=== PATIENT | female | born 1955 | race Caucasian/White ===

== ENCOUNTER 2017-01-14 15:25 | Emergency (ER) | payer BC, OTHER ==
[~2017-01-14] VITALS: Ht 165.1 cm; Wt 72.6 kg
[~2017-01-14 15:25] MED LIST: BENICAR 5 MG5 M1 OR; BENTYL 20 MG TA20 M1 PO; CARNITINE; CIPRO500 MG PO; FISHOIL; FLAGYL500 MG PO; INDAPAMIDE2.5 MG PO; LEVOTHYROXIN0.075 MG PO; NORCO 5-325 TA1 EACH PO; PERCOCET 5-3251 EACH PO; PHENERGAN 25 MG25 M1 PO; PRINIVIL10 MG PO; PROTONIX40 M2 PO; TRAMADOL 50 MG50 MG PO; TRAZODONE HCL100 MG PO; VALIUM5 MG PO; ZOFRAN ODT4 MG PO
[2017-01-14 15:59] LABS: URINE BILIRUBIN NEGATIVE (Negative); URINE BLOOD TRACE (Negative); URINE COLOR YELLOW; URINE GLUCOSE-RANDOM* NEGATIVE (Negative); URINE KETONES TRACE (Negative); URINE LEUKOCYTES-REFLEX NEGATIVE (Negative); URINE PROTEIN (DIPSTICK) NEGATIVE (Negative); URINE SPECIFIC GRAVITY 1.015 (1.003-1.035); URINE UROBILINOGEN 0.2 E.U./dl (0.2-1.0)
[2017-01-14 16:17] LABS: ABSOLUTE NEUTROPHILS 3.9 thou/uL (1.4-8.2); EOSINOPHILS 2.4 % (0.0-3.0); HEMATOCRIT 47.6 % (37.0-47.0); LYMPHOCYTES 28.4 % (24.0-44.0); MCH 32.6 pg (26.0-34.0); MCHC 35.7 g/dL (28.0-37.0); MCV 91.3 fL (80.0-100.0); MONOCYTES 7.5 % (1.0-8.0); PLATELET COUNT 224 thou/uL (150-400); POLYS 60.7 % (36.0-66.0); RBC 5.21 mil/uL (4.20-5.00); RDW 12.8 % (10.5-14.5); WBC 6.5 thou/uL (4.0-11.0)
[2017-01-14 16:18] LABS: MANUAL DIFF NO
[2017-01-14 16:21] LABS: CALCIUM 9.4 mg/dL (8.5-10.1); CREATININE 0.7 mg/dL (0.6-1.0)
[2017-01-14 16:27] LABS: ALBUMIN 4.7 g/dL (3.4-5.0); TOTAL BILIRUBIN 0.7 mg/dL (<0.1-1.0)
[2017-01-14] MEDS ORDERED: ULTRAM 50MG TAB50 MG PO (18:27)
[2017-01-14 18:34] VITALS: BP 147/76
== END 2017-01-14 18:36 | disposition home or self-care (01) ==
LOC: ER 15:25
PROVIDERS: Emergency Medicine
DX: R10.11 Right upper quadrant pain (principal); R10.13 Epigastric pain; I10 Essential (primary) hypertension; F10.99 Alcohol use, unspecified with unspecified alcohol-induced disorder; Z90.49 Acquired absence of other specified parts of digestive tract; Z90.710 Acquired absence of both cervix and uterus

== ENCOUNTER → 2021-05-12 | Outpatient (CLI) | payer OTHER ==
[~2021-05-12] MED LIST changes: +BENTYL 10 MG CA10 MG PO; +BYSTOLIC10 MG PO; +LEVOTHYROXINE88 MC1 PO; +MINIVELLE1 EAC1 TRANSDERM; +NURTEC ODT75 MG PO; +RIZATRIPTAN10 MG PO; +ROSUVASTATIN CA10 MG PO; +ULTRAM 50MG TAB50 MG PO
== END ==
LOC: SJCVCIMAG 07:25
PROVIDERS: ATTEND Internal Medicine Cardiovascular Disease
DX: Z01.818 Encounter for other preprocedural examination (principal); R00.1 Bradycardia, unspecified; I25.9 Chronic ischemic heart disease, unspecified; R07.9 Chest pain, unspecified; E78.5 Hyperlipidemia, unspecified; R93.1 Abnormal findings on diagnostic imaging of heart and coronary circulation; E78.00 Pure hypercholesterolemia, unspecified; I10 Essential (primary) hypertension; Z72.89 Other problems related to lifestyle; Z79.82 Long term (current) use of aspirin; Z79.899 Other long term (current) drug therapy

== ENCOUNTER → 2021-05-14 | Outpatient (CLI) | payer OTHER ==
[~2021-05-14] VITALS: Ht 165.1 cm; Wt 68.0 kg
[2021-05-14 08:35] VITALS: BP 109/73
--- NOTE | 2021-05-14 10:01 | EKG ---
[place] [address] [facility] [place] [address] ELECTROCARDIOGRAM REPORT Name: ABNER ARCE Room #: [facility]#: [id number] Admission: 05/14/21 Attend Phys: Mahin London MD Discharge: Date of : 59 Report #: [id number] [facility] Test Date: 2021-05-14 Test Time: 08:41:33 Pat Name: ABNER ARCE Department: Room: Gender: Database Development Project Manager: IMANI : 1955 Requested By: Mahin London Order Number: [id number] MD: Andrew Oh Measurements Intervals [place] Rate: 58 P: 42 ND: 169 QRS: -25 QRSD: 107 T: 5 QT: 432 QTc: 425 Interpretive Statements Sinus rhythm Left ventricular hypertrophy Inferior infarct, old Anterior infarct, old Compared to ECG 03/06/2010 18:42:13 Left ventricular hypertrophy now present Myocardial infarct finding now present Electronically Signed On 05-14-2021 10:00:57 MAINTENANCE JOB TITLES by Andrew Oh [email or web address] <ELECTRONICALLY SIGNED> By: Andrew Oh MD, [facility] 05/14/21 1000 D: 01/840 0 Andrew Oh MD, FACC /EPI
--- NOTE | 2021-05-14 10:42 | CATHLAB ---
[facility] [place] [address] INVASIVE PROCEDURE REPORT Name: ABNER ARCE [id number] Admission: 05/14/21 Attend Phys: Mahin London MD Discharge: Date of : 59 Report #: [id number] THIS REPORT FOR: cc: Lilo Calvert MD, Constance M. MD Park, Jin S. MD ~ APPROVED REPORT Study performed: 05/14/2021 09:33:19 Patient Details Patient Status: Out-Patient Room #: The patient is a 65 year-old female Event Personnel Mahin London Seam Feller, Amina Pinto RTR Monitor, Enoc Song RTR ScrubMaciel Jessica RN tool and die maker apprentice Performed Art Access - R femoral artery* Left Heart Cath w/or w/o Coronaries [id number] [facility] Hemostasis with Manual pressure 76732 Initial Mod Sed Same Phys/QHP Gr5y 542116 12172 Mod Sed Same Phys/QHP Ea [id number] Indication Positive stress test, Chest pain Risk Factors Hypercholesterolemia, Coronary Artery DiseaseHypertension Procedure Narrative The Right Groin^ was infiltrated with 1% Lidocaine subcutaneous anesthesia. A PINNACLE 4FR Sheath #[id number] sheath was inserted into the RFA^. Coronary angiography was performed using coronary diagnostic catheters. The right coronary system was accessed and visualized with a JR4 catheter. The left coronary system was accessed and visualized with a JL4 catheter. The left ventricle was accessed and visualized with a JR4 catheter. Hemostasis was obtained with manual pressure following sheath removal without any complications. The patient tolerated the procedure well and there were no complications associated with the procedure. There was no hematoma. Intraoperative Conscious Sedation [facility] [address] [place] [address] INVASIVE PROCEDURE REPORT Name: ABNER ARCE Room #: REG [facility]#: [id number] Admission: 05/14/21 Attend Phys: Mahin London MD Discharge: Date of : 59 Report #: [id number] Sedation start time: 9:53 Case end Time: 10:15 Fentanyl 50.0 mcg Versed 2 mg Fluoro Time: 1.80 minutes Dose: DAP 2710.40 cGycm2 390 mGy Contrast Type and Amount: Omnipaque 40 ml Coronary Angiography The patient's coronary anatomy is right dominant. Diagnostic Cath Left Main The left main artery is a large-caliber vessel, appears angiographically normal. LAD The LAD is a moderate-sized caliber vessel, traverses the anterior wall and wraps around the apex. There is minimal disease in the midsegment, less than 10%. Diagonal 1 This is a small to modest sized caliber vessel, patent with no flow-limiting lesions. Diagonal 2 This is a small to modest sized caliber vessel, patent with no flow-limiting lesions. Circumflex The left circumflex artery is a moderate-sized caliber vessel, supplies 2 OM vessels. OM1 This has a high takeoff from the left circumflex artery. There is mild disease in the proximal segment, 20%. OM2 This is a small to modest sized caliber vessel, patent with no flow-limiting lesions. Right Coronary The RCA is a dominant vessel with mild disease in the proximal segment, less than 20%. R PDA This is a small to modest sized caliber vessel, patent with no flow-limiting lesions. RPLV There are several RPL branches, patent vessels with no flow-limiting lesions. Left Ventriculography Left Ventriculography was not performed. Ejection Fraction was 55-60% based off patient's Nuclear Cardiac Stress Test. An LVEDP was measured and there is no gradient across the outflow tract. Hemodynamics The aortic pressure is 156/74 mmHg with a mean of 66 mmHg. The left ventricular pressure is 132/1 mmHg with a mean of mmHg. The left ventricular end diastolic pressure is 9 mmHg. Conclusion [facility] [address] [place] [address] INVASIVE PROCEDURE REPORT Name: ABNER ARCE Room #: REG [facility]#: [id number] Admission: 05/14/21 Attend Phys: Mahin London MD Discharge: Date of : 59 Report #: [id number] 1. There is mild disease in the LAD, OM1 and RCA. 2. This is a right dominant system. 3. There is normal LV systolic function. 4. Recommend risk factor management. <ELECTRONICALLY SIGNED> By: Mahin London MD 05/14/211041 41 41 Mahin London MD /INF
== END | disposition home or self-care (01) ==
LOC: CATH 07:12
PROVIDERS: ATTEND Internal Medicine Cardiovascular Disease
DX: R94.39 Abnormal result of other cardiovascular function study (principal); I25.10 Atherosclerotic heart disease of native coronary artery without angina pectoris; R07.9 Chest pain, unspecified; I10 Essential (primary) hypertension; E78.00 Pure hypercholesterolemia, unspecified; E78.5 Hyperlipidemia, unspecified; K21.9 Gastro-esophageal reflux disease without esophagitis; F41.9 Anxiety disorder, unspecified; Z98.890 Other specified postprocedural states; Z79.899 Other long term (current) drug therapy; Z90.710 Acquired absence of both cervix and uterus; Z90.49 Acquired absence of other specified parts of digestive tract